=== PATIENT | female | born 1965 | race Caucasian/White ===

== ENCOUNTER → 2017-09-04 | Outpatient (CLI) | payer OTHER | LOC: BMCIMAGING 11:24 | PROVIDERS: ATTEND Emergency Medicine | DX: R05 Cough (principal); R07.89 Other chest pain; R91.1 Solitary pulmonary nodule ==

== ENCOUNTER → 2017-09-18 | Outpatient (CLI) | payer OTHER | LOC: CIMAGING 13:54 | PROVIDERS: ATTEND Internal Medicine | DX: R91.8 Other nonspecific abnormal finding of lung field (principal) | CPT/HCPCS: 71250-PO ==